=== PATIENT | female | born 1975 | race Caucasian/White ===

== ENCOUNTER 2018-09-02 09:46 | Emergency (ER) | payer BC ==
[2018-09-02 09:51] VITALS: BP 146/73
[2018-09-02] MEDS ORDERED: FENTANYL CITRATE INJ/PF 100 MCG/2 ML AMPUL IV ONE (10:15)
--- NOTE | 2018-09-02 10:16 | RADIOLOGY REPORT (SQ) ---
EXAM DESCRIPTION: CT HEAD WITHOUT COMPLETED DATE/TIME: 09/02/2018 10:04 am REASON FOR STUDY: Fall COMPARISON: None. TECHNIQUE: Axial images acquired through the brain without intravenous contrast. Images reviewed wi th bone, brain and subdural windows. Additional sagittal and coronal reconstructions were generated. Images stored on PACS. All CT scanners at this facility use dose modulation, iterative reconstruction, and/or weight based d osing when appropriate to reduce radiation dose to as low as reasonably achievable (ALARA). [facility]: Dose Right [facility]: CareDose [facility]: Dose Right [facility]: Teradose 4D [facility]: Smart [employer] RADIATION DOSE: CT Rad equipment meets quality standard of care and radiation dose reduction techniq ues were employed. CTDIvol: 53.2 mGy. DLP: 991 mGy-cm. mGy. LIMITATIONS: None. FINDINGS: VENTRICLES: Normal size and contour. CEREBRUM: No masses. No hemorrhage. No midline shift. No evidence for acute infarction. Normal gra y/white matter differentiation. No areas of low density in the white matter. CEREBELLUM: No masses. No hemorrhage. No alteration of density. No evidence for acute infarction. EXTRAAXIAL SPACES: No fluid collections. No masses. ORBITS AND GLOBE: No intra- or extraconal masses. Normal contour of globe without masses. CALVARIUM: No fracture. PARANASAL SINUSES: There is a small amount of fluid versus mucosal thickening in the sphenoid sinus. There is mild mucosal thickening in both maxillary sinuses. SOFT TISSUES: There is soft tissue swelling of the right lower occipital bone. OTHER: No other significant finding. IMPRESSION: 1. No acute intracranial event. 2. Mild maxillary and sphenoid sinusitis. 3. Soft tissue swelling overlying the right occipital bone. EVIDENCE OF ACUTE STROKE: NO. COMMENT: Quality ID # [id number]: Final reports with documentation of one or more dose reduction techniques (e.g., Automated exposure control, adjustment of the mA and/or kV according to patient size, use of iterative reconstruction technique) TECHNICAL DOCUMENTATION: JOB ID: [id number] [employer]- All Rights Reserved Reading location - IP/workstation name: [email or web address]
[2018-09-02] MEDS ORDERED: ONDANSETRON HCL INJ/PF 4 MG/2 ML SDV IV ONE (10:19)
--- NOTE | 2018-09-02 10:33 | ER Document Report ---
ED Medical Screen (RME) - General Chief Complaint: Fall Stated Complaint: FALL Time Seen by Provider: 09/02/18 09:55 TRAVEL OUTSIDE OF THE [place] IN LAST 30 DAYS: No - Related Data Allergies/Adverse Reactions: Penicillins Allergy (Intermediate, Verified 09/02/18 10:14) Past Medical History - Social History Chew tobacco use (# tins/day): No Frequency of alcohol use: None Drug Abuse: None Renal/ Medical History: Denies: Hx Peritoneal Dialysis Past Surgical History: Reports: Hx Breast Surgery - augmentation, Hx Cholecystectomy, Hx Orthopedic Surgery - left shoulder, Hx Tubal Ligation - Immunizations Hx Diphtheria, Pertussis, Tetanus Vaccination: Yes Physical Exam - Vital signs Vitals: Temp Pulse Resp BP Pulse Ox 97.6 F 71 12 146/73 H 97 09/02/18 09:49 09/02/18 09:49 09/02/18 09:49 09/02/18 09:49 09/02/18 09:49 Course - Re-evaluation Re-evalutation: 09/02/18 10:31 43-year-old female presents for evaluation of a fall that was unwitnessed at home with a large injury to the back of her head. Through [facility] in she did have a CT scan obtained of her head, on individual review there is what appears to be a basilar skull fracture. [facility] to discuss the report, they agree that there is a basilar skull fracture. We will obtain CT of the orbits, will obtain CT of the cervical spine will obtain x-ray of the chest and shoulder. Have applied a cervical collar to this patient. 09/02/18 10:33 I have seen and performed a rapid medical screening examination for this patient. They will require further investigation and disposition determination by a second provider . - Vital Signs Vital signs: Temp Pulse Resp BP Pulse Ox 97.6 F 71 12 146/73 H 97 09/02/18 09:49 09/02/18 09:49 09/02/18 09:49 09/02/18 09:49 09/02/18 09:49 Doctor's Discharge - Discharge Clinical Impression: Basilar skull fracture Qualifiers: Encounter type: initial encounter Fracture type: open Laterality: right Qualified Code(s): S02.101B - Fracture of base of skull, right side, initial encounter for open fracture Referrals: MICHELL SOFIA MD [Primary Care Provider] - Follow up as needed
[2018-09-02 11:19] LABS: ABSOLUTE LYMPHOCYTES (AUTO) 1.5 10^3/uL (0.5-4.7); ABSOLUTE MONOCYTES (AUTO) 0.7 10^3/uL (0.1-1.4); ABSOLUTE NEUT (AUTO) 12.7 10^3/uL (1.7-8.2); BASOPHILS % (AUTO) 0.2 % (0-2); EOSINOPHILS % (AUTO) 0.2 % (0-6); HEMATOCRIT 38.5 % (36.0-47.0); HEMOGLOBIN 13.5 g/dL (12.0-15.5); LYMPHOCYTES % (AUTO) 9.9 % (13-45); MEAN CORPUSCULAR HEMOGLOBIN 30.8 pg (27.0-33.4); MEAN CORPUSCULAR HGB CONC 35.1 g/dL (32.0-36.0); MEAN CORPUSCULAR VOLUME 88 fl (80-97); PLATELET COUNT 280 10^3/uL (150-450); RED BLOOD COUNT 4.38 10^6/uL (3.72-5.28); RED CELL DISTRIBUTION WIDTH 12.6 % (11.5-14.0); SEGMENTED NEUTROPHILS % (AUTO) 84.7 % (42-78); TOTAL CELLS COUNTED % (AUTO) 100 %; WHITE BLOOD COUNT 14.9 10^3/uL (4.0-10.5)
--- NOTE | 2018-09-02 11:32 | RADIOLOGY REPORT (SQ) ---
EXAM DESCRIPTION: CT FACIAL AREA WITHOUT COMPLETED DATE/TIME: 09/02/2018 11:18 am REASON FOR STUDY: fall and basilar skull fx COMPARISON: None. TECHNIQUE: Noncontrasted images through the facial bones and orbits windowed for bone and soft tissu e. Additional coronal and sagittal reconstructed images reviewed. All images stored on PACS. All CT scanners at this facility use dose modulation, iterative reconstruction, and/or weight based d osing when appropriate to reduce radiation dose to as low as reasonably achievable (ALARA). [facility]: Dose Right [facility]: CareDose [facility]: Dose Right [facility]: Teradose 4D [facility]: [employer] RADIATION DOSE: CT Rad equipment meets quality standard of care and radiation dose reduction techniq ues were employed. CTDIvol: 30.4 mGy. DLP: 500 mGy-cm. mGy. LIMITATIONS: None. FINDINGS: FACIAL BONES: No fracture or bone lesion. ORBITS: There is a fracture through the left orbital roof. This is best demonstrated on the sagittal reconstructions. There is a small amount of soft tissue gas. Orbital floors are intact. PARANASAL SINUSES: There is mucosal thickening in the left maxillary sinus. There is a small amount of free fluid in the sphenoid sinus No nasal polyps. Maxillary sinus outlets are patent. SOFT TISSUES: Soft tissue gas is again noted adjacent to the right occipital condyles consistent with a basilar skull fracture demonstrated on CT of the brain. INFERIOR BRAIN: Limited view. No acute findings. OTHER: No other significant finding. IMPRESSION: There is a fracture through the left orbital roof as described. There is a small amount of associated soft tissue gas. Orbital floors are intact. There is subcutaneous gas at the right o ccipital condyles consistent with the basilar skull fracture demonstrated on recent CT brain. TECHNICAL DOCUMENTATION: JOB ID: [id number] Quality ID # [id number]: Final reports with documentation of one or more dose reduction techniques (e.g., Au tomated exposure control, adjustment of the mA and/or kV according to patient size, use of iterative reconstruction technique) 2010 [employer]- All Rights Reserved Reading location - IP/workstation name: [email or web address]
--- NOTE | 2018-09-02 11:34 | RADIOLOGY REPORT (SQ) ---
EXAM DESCRIPTION: CT CERVICAL SPINE WITHOUT COMPLETED DATE/TIME: 09/02/2018 11:18 am REASON FOR STUDY: fall COMPARISON: None. TECHNIQUE: Axial images acquired through the cervical spine without intravenous contrast. Images re viewed with lung, soft tissue and bone windows. Reconstructed coronal and sagittal MPR images review ed. Images stored on PACS. All CT scanners at this facility use dose modulation, iterative reconstruction, and/or weight based d osing when appropriate to reduce radiation dose to as low as reasonably achievable (ALARA). [facility]: Dose Right [facility]: CareDose [facility]: Dose Right [facility]: Teradose 4D [facility]: [employer] RADIATION DOSE: CT Rad equipment meets quality standard of care and radiation dose reduction techniq ues were employed. CTDIvol: 8.8 mGy. DLP: 151 mGy-cm. mGy. LIMITATIONS: None. FINDINGS: ALIGNMENT: Anatomic. MINERALIZATION: Normal. VERTEBRAL BODIES: No fractures or dislocation. DISCS: No significant disc disease. FACETS, LATERAL MASSES, POSTERIOR ELEMENTS: No fractures. No dislocation. No acute findings. HARDWARE: None in the spine. VISUALIZED RIBS: No fractures. LUNG APICES AND SOFT TISSUES: No significant or acute findings. OTHER: Air at the skullbase is again noted on the right consistent with basilar skull fracture best d emonstrated on CT of the brain done earlier. IMPRESSION: NO ACUTE OR SIGNIFICANT FINDINGS IN THE CERVICAL SPINE. TECHNICAL DOCUMENTATION: JOB ID: [id number] Quality ID # [id number]: Final reports with documentation of one or more dose reduction techniques (e.g., Au tomated exposure control, adjustment of the mA and/or kV according to patient size, use of iterative reconstruction technique) 2010 [employer]- All Rights Reserved Reading location - IP/workstation name: [email or web address]
[2018-09-02 11:40] LABS: ALANINE AMINOTRANSFERASE 56 U/L (9-52); ALBUMIN 4.3 g/dL (3.5-5.0); ALKALINE PHOSPHATASE 69 U/L (38-126); ANION GAP 12 (5-19); ASPARTATE AMINO TRANSFERASE 58 U/L (14-36); BILIRUBIN,DIRECT 0.2 mg/dL (0.0-0.4); BILIRUBIN,TOTAL 0.5 mg/dL (0.2-1.3); BLOOD UREA NITROGEN 13 mg/dL (7-20); CALCIUM 9.4 mg/dL (8.4-10.2); CARBON DIOXIDE 23 mmol/L (22-30); CHLORIDE 104 mmol/L (98-107); GLUCOSE 138 mg/dL (75-110); POTASSIUM 4.2 mmol/L (3.6-5.0); SODIUM 139.1 mmol/L (137-145); TOTAL PROTEIN 7.4 g/dL (6.3-8.2)
[2018-09-02 11:42] LABS: ALCOHOL < 10 mg/dL (NONE DETECTED)
--- NOTE | 2018-09-02 11:52 | RADIOLOGY REPORT (SQ) ---
EXAM DESCRIPTION: CHEST SINGLE VIEW COMPLETED DATE/TIME: 09/02/2018 11:41 am REASON FOR STUDY: fall COMPARISON: None. EXAM PARAMETERS: NUMBER OF VIEWS: One view. TECHNIQUE: Single frontal radiographic view of the chest acquired. RADIATION DOSE: NA LIMITATIONS: None. FINDINGS: LUNGS AND PLEURA: No opacities, masses or pneumothorax. No pleural effusion. MEDIASTINUM AND HILAR STRUCTURES: No masses. Contour normal. HEART AND VASCULAR STRUCTURES: Heart normal in size. Normal vasculature. BONES: No acute findings. HARDWARE: None in the chest. OTHER: No other significant finding. IMPRESSION: NO ACUTE RADIOGRAPHIC FINDING IN THE CHEST. TECHNICAL DOCUMENTATION: JOB ID: [id number] [employer]- All Rights Reserved Reading location - IP/workstation name: [email or web address]
[2018-09-02] MEDS ORDERED: HYDROMORPHONE HCL INJ/PF 2 MG/ML AMPULE IV ONE (11:53)
--- NOTE | 2018-09-02 11:53 | RADIOLOGY REPORT (SQ) ---
EXAM DESCRIPTION: SHOULDER LEFT 2 OR MORE VIEWS COMPLETED DATE/TIME: 09/02/2018 11:41 am REASON FOR STUDY: fall COMPARISON: None. NUMBER OF VIEWS: Three views. TECHNIQUE: Internal rotation, external rotation, and Y view images acquired of the left shoulder. LIMITATIONS: None. FINDINGS: MINERALIZATION: Normal. BONES: No acute fracture or dislocation. No worrisome bone lesions. JOINTS: No dislocation. VISUALIZED LUNGS AND RIBS: No pneumothorax. No rib fracture. SOFT TISSUES: No radiopaque foreign body. OTHER: No other significant finding. IMPRESSION: NEGATIVE STUDY OF THE LEFT SHOULDER. NO RADIOGRAPHIC EVIDENCE OF ACUTE INJURY. TECHNICAL DOCUMENTATION: JOB ID: [id number] [employer]- All Rights Reserved Reading location - IP/workstation name: [email or web address]
--- NOTE | 2018-09-02 12:10 | ER Document Report ---
ED General - General Chief Complaint: Fall Stated Complaint: FALL Time Seen by Provider: 09/02/18 09:55 Notes: Patient is a 43-year-old female that presents to the emergency department for chief complaint of head injury. Patient was climbing up into her attic, then apparently had fallen backwards, and struck her head, patient's been having retrograde amnesia to this event, does not recall the events surrounding, she is not sure if she lost consciousness, but is presumed because she does not recall these events. She was able to call her , who then came home and she was brought to the emergency department. She had bruising at the base of her skull, seen by the triage provider. She has pain in the base of her head, and pain around her eye and her left shoulder. She currently rates the pain she is having as a 9 out of 10. She does feel fatigued and drowsy, at this time , denies any change in her vision, but does have headache, and nausea and did have an episode of emesis in the ED. She denies any numbness, tingling or weakness in any of her extremities. Past Medical History: Denies chronic medical conditions Past Surgical History: Cholecystectomy, shoulder surgery Social History: Denies tobacco, alcohol or drug use. Family History: Reviewed and noncontributory for presenting illness Allergies: Reviewed, see documented allergy list. REVIEW OF SYSTEMS: Other than noted above, the 12 point review of systems was reviewed with the patient and were negative, all pertinent findings are included in the HPI. Vital signs reviewed, nursing notes reviewed. Primary Survey Airway: intact Breathing: Breath sounds equal bilaterally Circulation: distal pulses intact in all extremities, heart regular rate and rhythm Disability: Motor and sensation grossly intact in all extremities. GCS: 15 Secondary Survey GENERAL: Well-appearing, well-nourished and in no acute distress. HEAD: Raccoon's eyes present, significant edema and tenderness over the left orbital ridge, normocephalic. EYES: Edema and ecchymosis of the left orbital ridge, ecchymosis on a lesser degree noted over the right eyelid as well, extraocular movements intact, conjunctiva are normal. ENT: nares patent, dried blood in the nares, no septal hematoma, no midface instability or noted loose teeth. oropharynx clear without trauma. Moist mucous membranes. No hemotympanum or csf rhinorrhea, otorrhea noted. Webber sign. NECK: C collar in place. No midline tenderness. LUNGS: Breath sounds clear to auscultation bilaterally and equal. No wheezes rales or rhonchi. No chest wall tenderness, or flail chest. HEART: Regular rate and rhythm without murmurs ABDOMEN: Soft, nontender, normoactive bowel sounds. No rebound, guarding, or rigidity. No masses appreciated. EXTREMITIES: Tenderness to palpation of the left shoulder, with mild ecchymosis noted along the lateral clavicle, no gross deformity, pain with range of motion , of the left shoulder, the rest of her extremity exam is grossly unremarkable. No obvious deformities. Nontender, good range of motion, no pitting or edema. NEUROLOGICAL: No focal neurological deficits. Moves all extremities spontaneously Motor and sensory grossly intact on exam. PSYCH: Somnolent, but answering questions appropriately SKIN: Warm, Dry, normal turgor, no rashes or lesions noted on exposed skin TRAVEL OUTSIDE OF THE [place] IN LAST 30 DAYS: No - Related Data Allergies/Adverse Reactions: Penicillins Allergy (Intermediate, Verified 09/02/18 10:14) Past Medical History - Social History Smoking Status: Never Smoker Chew tobacco use (# tins/day): No Frequency of alcohol use: None Drug Abuse: None Family History: Reviewed & Not Pertinent Patient has suicidal ideation: No Patient has homicidal ideation: No Renal/ Medical History: Denies: Hx Peritoneal Dialysis Past Surgical History: Reports: Hx Breast Surgery - augmentation, Hx Cholecystectomy, Hx Orthopedic Surgery - left shoulder, Hx Tubal Ligation - Immunizations Hx Diphtheria, Pertussis, Tetanus Vaccination: Yes Physical Exam - Vital signs Vitals: Temp Pulse Resp BP Pulse Ox 97.6 F 71 12 146/73 H 97 09/02/18 09:49 09/02/18 09:49 09/02/18 09:49 09/02/18 09:49 09/02/18 09:49 Course - Re-evaluation Re-evalutation: Patient seen and examined vital signs reviewed. Laboratory data and imaging were ordered as appropriate for the patient's presenting symptoms and complaint, with consideration of any critical or life threatening conditions that may be associated with their obtained history and exam as noted above. Patient was treated with IV Zofran, and IV fentanyl for pain Results were reviewed when available and demonstrated CT imaging that was consistent with a basilar skull fracture, and left orbital ridge fracture, CT of the neck was negative, x-rays of the left shoulder were negative. The patient was re-evaluated and was hemodynamically stable, she had a GCS of 15 , she did have an episode of emesis, she was treated with additional IV 50 micro grams of fentanyl Evaluation was most consistent with basilar skull fracture, left orbital fracture, fall, closed head injury Results were discussed with the patient at this point after careful consideration I feel that that patient should be transferred to [facility] due to her traumatic injury. This was discussed with the patient that it is in the best interest for their care to be transferred, the risks and benefits of transfer were discussed, including but not limited to clinical deterioration during transport, respiratory distress, and potential for traumatic injuries. Patient agreed with this plan of care. Case was discussed with Dr. Arrington with trauma surgery who is accepting the patient. *Note is created using voice recognition software and may contain spelling, syntax or grammatical errors. Laboratory 09/02/18 09/02/18 09/02/18 10:54 10:54 10:54 WBC 14.9 H RBC 4.38 Hgb 13.5 Hct 38.5 MCV 88 MCH 30.8 MCHC 35.1 RDW 12.6 Plt Count 280 Seg Neutrophils % 84.7 H Lymphocytes % 9.9 L Monocytes % 5.0 Eosinophils % 0.2 Basophils % 0.2 Absolute Neutrophils 12.7 H Absolute Lymphocytes 1.5 Absolute Monocytes 0.7 Absolute Eosinophils 0.0 Absolute Basophils 0.0 Sodium 139.1 Potassium 4.2 Chloride 104 Carbon Dioxide 23 Anion Gap 12 BUN 13 Creatinine 0.47 L Est GFR ( Amer) > 60 Est GFR (Non-Af Amer) > 60 Glucose 138 H Calcium 9.4 Total Bilirubin 0.5 Direct Bilirubin 0.2 Neonat Total Bilirubin Not Reportable Neonat Direct Bilirubin Not Reportable Neonat Indirect Bili Not Reportable AST 58 H ALT 56 H Alkaline Phosphatase 69 Total Protein 7.4 Albumin 4.3 Serum HCG, Qual NEGATIVE Serum Alcohol < [address] 09/02/18 00:00 IMPRESSION: 1. No acute intracranial event. 2. Mild maxillary and sphenoid sinusitis. 3. Soft tissue swelling overlying the right occipital bone. EVIDENCE OF ACUTE STROKE: NO. Cervical Spine CT 09/02/18 10:13 IMPRESSION: NO ACUTE OR SIGNIFICANT FINDINGS IN THE CERVICAL SPINE. Chest X-Ray 09/02/18 10:13 IMPRESSION: NO ACUTE RADIOGRAPHIC FINDING IN THE CHEST. Shoulder X-Ray 09/02/18 10:13 IMPRESSION: NEGATIVE STUDY OF THE LEFT SHOULDER. NO RADIOGRAPHIC EVIDENCE OF ACUTE INJURY. Facial Bones CT 09/02/18 10:25 IMPRESSION: There is a fracture through the left orbital roof as described. There is a small amount of associated soft tissue gas. Orbital floors are intact. There is subcutaneous gas at the right occipital condyles consistent with the basilar skull fracture demonstrated on recent CT brain. - Vital Signs Vital signs: Temp Pulse Resp BP Pulse Ox 97.6 F 71 12 146/73 H 97 09/02/18 09:49 09/02/18 09:49 09/02/18 09:49 09/02/18 09:49 09/02/18 09:49 - Laboratory Result Diagrams: 09/02/18 10:54 09/02/18 10:54 Laboratory results interpreted by me: 09/02/18 09/02/18 10:54 10:54 WBC 14.9 H Seg Neutrophils % 84.7 H Lymphocytes % 9.9 L Absolute Neutrophils 12.7 H Creatinine 0.47 L Glucose 138 H AST 58 H ALT 56 H Critical Care Note - Critical Care Note Total time excluding time spent on procedures (mins): 45 Comments: Critical care time 45 minutes exclusive from separate billable procedures for a patient requiring complex medical decision making, and high potential for clinical deterioration. In a patient with acute traumatic injuries including a basilar skull fracture, with high potential for deterioration from a neurological standpoint. Time spent obtaining history from patient or surrogate , discussions with consultants, development of treatment plan with patient or surrogate, evaluation of patient's response to treatment, examination of patient , ordering and performing treatments and interventions, ordering and review of laboratory studies, re-evaluation of patient's condition, ordering and review of radiographic studies and review of old charts Discharge - Discharge Clinical Impression: Basilar skull fracture Qualifiers: Encounter type: initial encounter Fracture type: open Laterality: right Qualified Code(s): S02.101B - Fracture of base of skull, right side, initial encounter for open fracture Orbital roof fracture Qualifiers: Encounter type: initial encounter Fracture type: closed Qualified Code(s): S02.19XA - Other fracture of base of skull, initial encounter for closed fracture Closed head injury Qualifiers: Encounter type: initial encounter Qualified Code(s): S09.90XA - Unspecified injury of head, initial encounter Fall Qualifiers: Encounter type: initial encounter Qualified Code(s): W19.XXXA - Unspecified fall, initial encounter Shoulder contusion Qualifiers: Encounter type: initial encounter Laterality: left Qualified Code(s): S40.012A - Contusion of left shoulder, initial encounter Condition: Stable Disposition: [facility] Referrals: MICHELL SOFIA MD [Primary Care Provider] - Follow up as needed
[2018-09-02] MEDS ORDERED: PROMETHAZINE HCL INJ 25 MG/1 ML VIAL IV ONE (12:35)
[2018-09-02 12:44] LABS: INTERNATIONAL RATION (INR) 0.96; PROTHROMBIN TIME 13.3 SEC (11.4-15.4)
[2018-09-02 12:45] LABS: PARTIAL THROMBOPLASTIN TIME 25.8 SEC (23.5-35.8)
== END 2018-09-02 13:00 | disposition short-term general hospital (02) ==
LOC: ER 09:46
DX: S02.10 Unspecified fracture of base of skull (principal); S02.19XA Other fracture of base of skull, initial encounter for closed fracture; S40.012A Contusion of left shoulder, initial encounter; W17.89XA Other fall from one level to another, initial encounter; Y92.009 Unspecified place in unspecified non-institutional (private) residence as the place of occurrence of the external cause; Z90.49 Acquired absence of other specified parts of digestive tract; R53.83 Other fatigue; Z88.0 Allergy status to penicillin; Z98.51 Tubal ligation status
CPT/HCPCS: 99285; 96374; 96375; 36415; 80307; 84703; 85025; 85610; 85730; 80053; 71045; 73030; 70450; 70486; 72125; L0120; J3010; J1170; J2550; J2405

== ENCOUNTER 2019-09-25 09:50 | Emergency (ER) | payer BC ==
[2019-09-25] MEDS ORDERED: IBUPROFEN 800 MG TABLET PO ONE (10:26)
--- NOTE | 2019-09-25 10:27 | ER Document Report ---
ED Medical Screen (RME) - General Chief Complaint: Neck Problem Stated Complaint: NECK AND SHOULDER PAIN Time Seen by Provider: 09/25/19 10:18 Primary Care Provider: MICHELL SOFIA MD [Primary Care Provider] - Follow up as needed Mode of Arrival: Ambulatory Notes: Patient presents with a history of a basilar skull fracture after a fall out of her ceiling last year. Patient states she has had chronic right upper extremity pain since the injury for which she sees neurology. Patient states she was supposed to have an MRI although her insurance would not allow the study to be performed. Patient states that over the past 2 months she is at increased pain and then over the past 24 hours she has had limited mobility of the right upper extremity. Patient with weakened body worker to right hand. Patient denies any new injury. I have greeted and performed a rapid initial assessment of this patient. A comprehensive ED assessment and evaluation of the patient, analysis of test results and completion of the medical decision making process will be conducted by additional ED providers. TRAVEL OUTSIDE OF THE [place] IN LAST 30 DAYS: No - Related Data Allergies/Adverse Reactions: Penicillins Allergy (Intermediate, Verified 09/25/19 10:13) Past Medical History - Social History Chew tobacco use (# tins/day): No Frequency of alcohol use: None Drug Abuse: None Renal/ Medical History: Denies: Hx Peritoneal Dialysis Past Surgical History: Reports: Hx Breast Surgery - augmentation, Hx Cholecystectomy, Hx Orthopedic Surgery - left shoulder, Hx Tubal Ligation - Immunizations Hx Diphtheria, Pertussis, Tetanus Vaccination: Yes Physical Exam - Vital signs Vitals: Temp Pulse Resp BP Pulse Ox 97.6 F 58 L 18 131/80 H 100 09/25/19 09:54 09/25/19 09:54 09/25/19 09:54 09/25/19 09:54 09/25/19 09:54 - General General appearance: Alert Notes: Weakened body worker to right hand, tenderness to neck and right paraspinal cervical area Course - Vital Signs Vital signs: Temp Pulse Resp BP Pulse Ox 97.6 F 58 L 18 131/80 H 100 09/25/19 10:16 09/25/19 10:16 09/25/19 10:16 09/25/19 10:16 09/25/19 10:16 Doctor's Discharge - Discharge Referrals: MICHELL SOFIA MD [Primary Care Provider] - Follow up as needed
--- NOTE | 2019-09-25 12:21 | RADIOLOGY REPORT (SQ) ---
EXAM DESCRIPTION: SHOULDER RIGHT 2 OR MORE VIEWS COMPLETED DATE/TIME: 09/25/2019 11:45 am REASON FOR STUDY: pain and decreased ROM COMPARISON: 01/01/2013. NUMBER OF VIEWS: Three views. TECHNIQUE: Internal rotation, external rotation, and Y view images acquired of the right shoulder. LIMITATIONS: None. FINDINGS: MINERALIZATION: Normal. BONES: No acute fracture. JOINTS: No dislocation. VISUALIZED LUNGS AND RIBS: No pneumothorax or rib fracture. SOFT TISSUES: No radiopaque foreign body. OTHER: No other finding. IMPRESSION: No acute osseous abnormality of the right shoulder. TECHNICAL DOCUMENTATION: JOB ID: [id number] [employer]- All Rights Reserved Reading location - IP/workstation name: [email or web address]
--- NOTE | 2019-09-25 14:25 | ER Document Report ---
ED General - General Chief Complaint: Neck Problem Stated Complaint: NECK AND SHOULDER PAIN Time Seen by Provider: 09/25/19 10:18 Primary Care Provider: MICHELL SOFIA MD [ASSOCIATE] - Follow up as needed Mode of Arrival: Ambulatory TRAVEL OUTSIDE OF THE [place] IN LAST 30 DAYS: No - HPI Notes: Ms. Ley is a 44-year-old female presenting with a chief complaint of chronic neck pain and right upper extremity pain. This lady suffered a fall approximately 13 months ago with a documented basilar skull fracture. Imaging of the cervical spine was negative for fracture at that time. She is gone on to develop chronic neck and right upper extremity pain. She is seen chiropractor for some extended course of treatment with no improvement and was subsequently seen by a neurologist who feels that she may have some kind of a chronic radiculopathy. He referred her back to her primary care doctor who is sent her to the ER today requesting that we "go ahead and get an MRI scan for her". Patient is currently taking some topical muscle relaxer but is not presently on an NSAID. - Related Data Allergies/Adverse Reactions: Penicillins Allergy (Intermediate, Verified 09/25/19 10:13) Past Medical History - General Information source: Patient - Social History Smoking Status: Never Smoker Chew tobacco use (# tins/day): No Frequency of alcohol use: None Drug Abuse: None Family History: Reviewed & Not Pertinent Patient has suicidal ideation: No Patient has homicidal ideation: No Renal/ Medical History: Denies: Hx Peritoneal Dialysis Past Surgical History: Reports: Hx Breast Surgery - augmentation, Hx Cholecystectomy, Hx Orthopedic Surgery - left shoulder, Hx Tubal Ligation - Immunizations Hx Diphtheria, Pertussis, Tetanus Vaccination: Yes Review of Systems - Review of Systems Notes: Constitutional: Negative for fever. HENT: Negative for sore throat. Eyes: Negative for visual changes. Cardiovascular: Negative for chest pain. Respiratory: Negative for shortness of breath. Gastrointestinal: Negative for abdominal pain, vomiting or diarrhea. Genitourinary: Negative for dysuria. Musculoskeletal: As per HPI . Skin: Negative for rash. Neurological: As per HPI. 10 point ROS negative except as marked above and in HPI. Physical Exam - Vital signs Vitals: Temp Pulse Resp BP Pulse Ox 97.6 F 58 L 18 131/80 H 100 09/25/19 09:54 09/25/19 09:54 09/25/19 09:54 09/25/19 09:54 09/25/19 09:54 - Notes Notes: GENERAL: Well-developed well-nourished appearing uncomfortable. SKIN: Good turgor no rashes. HEAD: Normocephalic atraumatic. EYES: PERRLA. Conjunctivae and sclerae clear. EARS: CANALS AND TMS CLEAR. NOSE: CLEAR. MOUTH: Moist mucosa. Good dentition. No stridor or edema. No drooling. NECK: Mildly decreased range of motion in all planes. Tender along right posterior lateral aspect with some muscle spasm present. No masses or thyromegaly. No adenopathy. Carotids 2+ without bruits. No JVD. BACK: Symmetrical without tenderness. CHEST: Respirations unlabored. Breath sounds clear and symmetrical. HEART: Regular rhythm. No murmur gallop or rub. ABDOMEN: Soft nontender without masses, organomegaly or rebound. Bowel sounds n ormally active. No bruits. GENITALIA: Deferred. EXTREMITIES: Diminished range of motion of right shoulder in all planes with associated pain with active and passive movement. No edema. No calf te nderness. Cap refill less than 1.5 seconds. Dorsalis pedis and posterior tibial pulses 3+ and symmetrical. NEUROLOGICAL: GCS 15. Alert and oriented x3. Normal gait. Fluent speech. Cranial nerves II through XII intact. Sensorimotor and cerebellar normal. Normal tone. Course - Re-evaluation Re-evalutation: 09/25/19 14:25 MRI unit at this time is currently down and is not expected to be up for 4 more hours. This is been explained to the patient she would prefer not to wait for the study today but will discuss outpatient scheduling with her primary care provider. I will go ahead and start her on a prescription strength NSAID. - Vital Signs Vital signs: Temp Pulse Resp BP Pulse Ox 97.6 F 58 L 18 131/80 H 100 09/25/19 10:16 09/25/19 10:16 09/25/19 10:16 09/25/19 10:16 09/25/19 10:16 - Diagnostic Test Radiology reviewed: Reports reviewed - Plain films of the right shoulder are normal per radiologist. Discharge - Discharge Clinical Impression: Cervical radiculitis Condition: Stable Disposition: HOME, SELF-CARE Additional Instructions: Radiculopathy Radiculopathy is irritation of a nerve. Sometimes this is called "pinched nerve." The pain can be sharp and stabbing, constant and dull, or burning in nature. The pain can occur in any area of the chest, shoulders, or arms. Sometimes the pain is provoked by coughing or moving. Radiculopathy can be caused by physical pressure on a nerve, such as a herniated disc or swollen joint in the spine. It can also be caused by viral infections within the nerve or by nerve damage due to diabetes or blood vessel disease. Radicular pain is treated with antiinflammatory medicine. Injections may help resistant cases, if we can identify a single nerve that's causing the pain. Surgery is usually not necessary. If symptoms do not improve with time, you may need additional testing, such as an MRI or EMG (electromyogram). Return if there is local weakness or numbness, shortness of breath, increasing pain, or other new symptoms. See your primary care physician as soon as possible to coordinate physical therapy and MRI scanning. Return here as needed for new or worsening symptoms. Prescriptions: Diclofenac Sodium [Voltaren] 75 mg PO TID #30 tablet.dr Forms: Return to Work Referrals: MICHELL SOFIA MD [ASSOCIATE] - Follow up as needed
[2019-09-25 14:39] VITALS: BP 139/89
== END 2019-09-25 14:38 | disposition home or self-care (01) ==
LOC: ER 09:50
DX: M54.12 Radiculopathy, cervical region (principal); Z79.899 Other long term (current) drug therapy; Z88.0 Allergy status to penicillin
CPT/HCPCS: 99283

== ENCOUNTER 2020-07-19 13:27 | Emergency (ER) | payer BC ==
[2020-07-19] MEDS ORDERED: ONDANSETRON 4 MG TAB.RAPDIS PO ONE (13:38)
--- NOTE | 2020-07-19 13:45 | ER Document Report ---
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 Per the she is slowly recovering from the injury and still has issues with speaking and walking. Today she was cleaning in the bathroom when she hit the back of her head under the cabinet. Denied any loss of consciousness. Has started having some tremors since the head injury which the sets have subsided from previous injury but occasionally do happen. Patient complains of nausea but has not vomited. PE: Patient is alert and oriented x3 she is slow to respond. But she is able to fo llow directions. PERRLA, hematoma noted to the posterior scalp. Lungs: Clear to auscultation without rales, rhonchi, wheezes. Heart: Regular rate rhythm without murmurs, rubs, gallops. Patient will be taken directly to CT. Unable to reach charge nurse to notify her of patient. I have greeted and performed a rapid initial assessment of this patient. A comprehensive ED assessment and evaluation of the patient, analysis of test results and completion of the medical decision making process will be conducted by additional ED providers. I have specifically instructed the patient or family members with the patient to immediately return to any nursing staff should anything change in the patient's condition or with their chief complaint. TRAVEL OUTSIDE OF THE [place] IN LAST 30 DAYS: No - Related Data Allergies/Adverse Reactions: Penicillins Allergy (Intermediate, Verified 09/25/19 10:13) Past Medical History Renal/ Medical History: Denies: Hx Peritoneal Dialysis Past Surgical History: Reports: Hx Breast Surgery - augmentation, Hx Cholecystectomy, Hx Orthopedic Surgery - left shoulder, Hx Tubal Ligation - Immunizations Hx Diphtheria, Pertussis, Tetanus Vaccination: Yes Doctor's Discharge - Discharge Referrals: KENZIE MONTES MD [Primary Care Provider] - Follow up as needed
--- NOTE | 2020-07-19 14:14 | RADIOLOGY REPORT (SQ) ---
EXAM DESCRIPTION: CT HEAD WITHOUT IMAGES COMPLETED DATE/TIME: 07/19/2020 1:52 pm REASON FOR STUDY: head trauma COMPARISON: 09/02/2018 TECHNIQUE: Axial images acquired through the brain without intravenous contrast. Images reviewed wi th bone, brain and subdural windows. Additional sagittal and coronal reconstructions were generated. Images stored on PACS. All CT scanners at this facility use dose modulation, iterative reconstruction, and/or weight based d osing when appropriate to reduce radiation dose to as low as reasonably achievable (ALARA). [facility]: Dose Right [facility]: CareDose [facility]: Dose Right [facility]: Teradose 4D [facility]: Smart GeoVario RADIATION DOSE: CT Rad equipment meets quality standard of care and radiation dose reduction techniq ues were employed. CTDIvol: 53.2 mGy. DLP: 991 mGy-cm. mGy. LIMITATIONS: None. FINDINGS: VENTRICLES: Normal size and contour. CEREBRUM: No masses. No hemorrhage. No midline shift. No evidence for acute infarction. Normal gra y/white matter differentiation. No areas of low density in the white matter. CEREBELLUM: No masses. No hemorrhage. No alteration of density. No evidence for acute infarction. EXTRAAXIAL SPACES: No fluid collections. No masses. ORBITS AND GLOBE: No intra- or extraconal masses. Normal contour of globe without masses. CALVARIUM: No fracture. PARANASAL SINUSES: No fluid or mucosal thickening. SOFT TISSUES: No mass or hematoma. OTHER: No other significant finding. IMPRESSION: NORMAL BRAIN CT WITHOUT CONTRAST. EVIDENCE OF ACUTE STROKE: NO. COMMENT: Quality ID # [id number]: Final reports with documentation of one or more dose reduction techniques (e.g., Automated exposure control, adjustment of the mA and/or kV according to patient size, use of iterative reconstruction technique) TECHNICAL DOCUMENTATION: JOB ID: [id number] 2010 [employer]- All Rights Reserved Reading location - IP/workstation name: [email or web address]
[2020-07-19 15:24] LABS: ABSOLUTE EOSINOPHILS # (AUTO) 0.1 10^3/uL (0.0-0.6); ABSOLUTE LYMPHOCYTES (AUTO) 1.6 10^3/uL (0.5-4.7); ABSOLUTE MONOCYTES (AUTO) 0.5 10^3/uL (0.1-1.4); ABSOLUTE NEUT (AUTO) 4.5 10^3/uL (1.7-8.2); BASOPHILS % (AUTO) 0.2 % (0-2); EOSINOPHILS % (AUTO) 1.1 % (0-6); HEMATOCRIT 37.1 % (36.0-47.0); HEMOGLOBIN 13.3 g/dL (12.0-15.5); LYMPHOCYTES % (AUTO) 24.1 % (13-45); MEAN CORPUSCULAR HEMOGLOBIN 31.8 pg (27.0-33.4); MEAN CORPUSCULAR HGB CONC 35.8 g/dL (32.0-36.0); MEAN CORPUSCULAR VOLUME 89 fl (80-97); PLATELET COUNT 293 10^3/uL (150-450); RED BLOOD COUNT 4.16 10^6/uL (3.72-5.28); RED CELL DISTRIBUTION WIDTH 12.5 % (11.5-14.0); SEGMENTED NEUTROPHILS % (AUTO) 67.6 % (42-78); TOTAL CELLS COUNTED % (AUTO) 100 %; WHITE BLOOD COUNT 6.6 10^3/uL (4.0-10.5)
[2020-07-19 15:30] LABS: INTERNATIONAL RATION (INR) 0.87; PROTHROMBIN TIME 12.1 SEC (11.4-15.4)
--- NOTE | 2020-07-19 15:41 | ER Document Report ---
ED Head/Face/Scalp Injury - General Chief Complaint: Head Injury Stated Complaint: HEAD INJURY Time Seen by Provider: 07/19/20 13:31 Primary Care Provider: KENZIE MONTES MD [NO LOCAL MD] - Follow up as needed Mode of Arrival: Wheelchair TRAVEL OUTSIDE OF THE [place] 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 Per the she is slowly recovering from the injury and still has issues with speaking and walking. This morning she was cleaning in the bathroom when she hit the back of her head under the cabinet. Denied any loss of consciousness. Has started having some tremors since the head injury which the sets have subsided from previous injury but occasionally do happen. Patient complains of nausea but has not vomited. - Related Data Allergies/Adverse Reactions: Penicillins Allergy (Intermediate, Verified 09/25/19 10:13) Past Medical History - General Information source: Patient, Relative, [facility] Records - Social History Smoking Status: Former Smoker Chew tobacco use (# tins/day): No Frequency of alcohol use: None Drug Abuse: None Family History: Reviewed & Not Pertinent Patient has homicidal ideation: No Renal/ Medical History: Denies: Hx Peritoneal Dialysis Traumatic Medical History: Reports: Hx Traumatic Brain Injury Past Surgical History: Reports: Hx Breast Surgery - augmentation, Hx Cholecystectomy, Hx Orthopedic Surgery - left shoulder, Hx Tubal Ligation - Immunizations Hx Diphtheria, Pertussis, Tetanus Vaccination: Yes Review of Systems - Review of Systems Notes: Constitutional: Negative for fever. HENT: Negative for sore throat. Eyes: Negative for visual changes. Cardiovascular: Negative for chest pain. Respiratory: Negative for shortness of breath. Gastrointestinal: Nausea without vomiting. Genitourinary: Negative for dysuria. Musculoskeletal: Negative for back pain. Skin: Negative for rash. Neurological: As per HPI. 10 point ROS negative except as marked above and in HPI. Physical Exam - Notes Notes: GENERAL: Well-developed well-nourished appearing in no acute distress. SKIN: Good turgor no rashes. HEAD: Normocephalic atraumatic. EYES: PERRLA. EOMI. Conjunctivae and sclerae clear. EARS: CANALS AND TMS CLEAR. NOSE: CLEAR. MOUTH: Moist mucosa. Good dentition. No stridor or edema. No drooling. NECK: Supple. No masses or thyromegaly. No adenopathy. Carotids 2+ without bruits. No JVD. BACK: Symmetrical without tenderness. CHEST: Respirations unlabored. Breath sounds clear and symmetrical. HEART: Regular rhythm. No murmur gallop or rub. ABDOMEN: Soft nontender without masses, organomegaly or rebound. Bowel sounds normally active. No bruits. GENITALIA: Deferred. EXTREMITIES: No edema. No calf tenderness. Cap refill less than 1.5 seconds. Dorsalis pedis and posterior tibial pulses 3+ and symmetrical. NEUROLOGICAL: GCS 15. Alert and oriented x3. Gait is slightly cautious says is consistent with prior baseline. Fluent speech. Cranial nerves II through XII intact. Sensorimotor and cerebellar normal. Normal tone. PSYCHIATRIC: Affect flat. Course - Re-evaluation Re-evalutation: 07/19/20 15:[address] noncontrast per radiologist. Neurologic exam is remarkable for flat affect and a slightly unsteady gait which her says is baseline in both cases. is comfortable taking her home and following up with primary care at this point. She is able to ambulate without assistance and is taking sips of fluids here without difficulty. We reviewed head injury instructions including red flag symptoms for return. She will see her primary care physician tomorrow for follow-up. Findings, clinical impression and plan of treatment have been discussed with patient/family. Understanding of current findings and recommendations has been acknowledged by them and there is agreement regarding disposition and follow-up. - Laboratory Result Diagrams: 07/19/20 14:46 07/19/20 14:46 Discharge - Discharge Clinical Impression: Mild concussion without loss of consciou Condition: Stable Disposition: HOME, SELF-CARE Additional Instructions: Concussion You have suffered a concussion -- a temporary loss of certain brain functions due to a mild brain injury. The recovery is usually rapid and complete. The temporary problems occurring with a concussion can include loss of consciousness, dizziness, nausea, vomiting, and confusion. Repeat concussions can cause brain damage. In the future, avoid activities that will cause a blow to your head. Wear a helmet for sports such as snowboarding, biking, or skating. It's important that someone be with you for the first 24 hours. During this time, do not exercise or drive a vehicle. Do not take any pain medication stronger than acetaminophen unless prescribed by the physician. Any significant changes should be reported immediately to the physician. Signs of a problem may include: (1) Mental confusion (2) Incoordination or staggering (3) Repeated or forceful vomiting (4) Clear or bloody drainage from ear, mouth, or nose (5) Severe headache, not relieved by acetaminophen or prescribed pain medication (6) Failure to improve in 24 hours Follow-up with your primary care physician next 24 to 48 hours. Tylenol as needed. You will also be given prescription for nausea medicine as needed. Prescriptions: Ondansetron [Zofran Odt 4 mg Tablet] 1 - 2 tab PO Q4H PRN #15 tab.rapdis PRN Reason: For Nausea/Vomiting Referrals: KENZIE MONTES MD [NO LOCAL MD] - Follow up as needed
[2020-07-19 15:44] LABS: ALBUMIN 4.2 g/dL (3.5-5.0); ALKALINE PHOSPHATASE 71 U/L (38-126); ANION GAP 10 (5-19); ASPARTATE AMINO TRANSFERASE 44 U/L (14-36); BILIRUBIN,DIRECT 0.2 mg/dL (0.0-0.4); BILIRUBIN,TOTAL 0.4 mg/dL (0.2-1.3); BLOOD UREA NITROGEN 11 mg/dL (7-20); CALCIUM 9.8 mg/dL (8.4-10.2); CARBON DIOXIDE 25 mmol/L (22-30); CHLORIDE 104 mmol/L (98-107); GLUCOSE 110 mg/dL (75-110)
[2020-07-19 16:35] VITALS: BP 122/83
== END 2020-07-19 16:36 | disposition home or self-care (01) ==
LOC: ER 13:27
DX: S06.0X0A Concussion without loss of consciousness, initial encounter (principal); R11.0 Nausea; W22.09XA Striking against other stationary object, initial encounter
CPT/HCPCS: 99284; 36415; 84703; 85025; 85610; 80053; 70450; S0119